=== PATIENT | male | born 1935 | race Caucasian/White ===

== ENCOUNTER → 2017-10-03 | Day surgery (SDC) | payer MEDICARE ==
[2017-10-03] VITALS (7 sets, daily range): BP systolic 114–139; BP diastolic 44–61
[~2017-10-03] VITALS: Ht 177.8 cm; Wt 81.6 kg
[~2017-10-03] MED LIST: APRESOLINE10 MG PO; ASPIRIN FOR CHI81 MG PO; HYDREA500 M1 PO; Meclizine25 MG PO; PRESERVISION A1 EAC1 PO; PRILOSEC20 M1 PO; TOPROL XL25 MG PO
--- NOTE | ~2017-10-03 | PROC NOTE ---
[place], [place] PROCEDURE NOTE NAME: [facility]DEZ [id number] UNIT #: [id number] ROOM: DOCTOR: NIXON PAULA MD,ERNESTO BIRTHDATE: [birth year] DOS: 10/03/2017 OUTPATIENT BRONCHOSCOPY NOTE PREOPERATIVE DIAGNOSIS: Right lower lung mass. POSTOPERATIVE DIAGNOSIS: Right lower lung mass. PROCEDURE DESCRIPTION: Informed consent obtained for the patient. The patient was brought to the OR and placed in a supine position. Conscious sedation administered by the Anesthesia Department. After achieving proper sedation, airway introduced into the mouth. The bronchoscope was advanced to airway into laryngeal area. Epiglottis and vocal cords were seen. Vocal cords are moving symmetrically with movements. The bronchoscope was advanced to the vocal cord and tracheal lumen, which are noted patent. Right upper, right middle, right lower, left upper, lingular lobe bronchi were all examined and noted clear of any secretions. The bronchial washing taken in the right lower lobe endobronchial tree as well as BAL specimen was also obtained for the patient successfully in all of the subsegments. The procedure was tolerated by the patient without any complication. Postoperative findings were discussed with the patient's family members. Outpatient followup already been scheduled for the office. ERNESTO ALICEA MD CM:PROCNOTE:PROCEDURE NOTE [id number] ERNESTO PAULA MD
[2017-10-03 09:09] LABS: HEMATOCRIT 27.9 % (42.0-52.0); HEMOGLOBIN 7.9 g/dl (14.0-18.0); MEAN CELL VOLUME 101.5 fl (80.0-94.0); MEAN CORPUSCULAR HGB 28.7 pg (27.0-31.0); MEAN CORPUSCULAR HGB CONC 28.3 g/dl (33.0-37.0); MEAN PLATELET VOLUME 9.9 fl (9.6-12.3); NUCLEATED RED BLOOD CELL 1.9 10*3/uL (0.0-0.0); NUCLEATED RED BLOOD CELL 4.1 % (0.0-0.0); PLATELET COUNT AUTOMATED 409 10*3/uL (130-400); RED BLOOD COUNT 2.75 10*6/uL (4.50-5.90); RED CELL DISTRI WIDTH 17.3 % (0-14.5)
[2017-10-03 09:16] LABS: WHITE BLOOD COUNT 45.9 10*3/uL (4.8-10.8)
[2017-10-03 09:26] LABS: BASOPHILS 4 % (0-1); TOTAL CELLS COUNTED 100 #CELLS
[2017-10-03 09:27] LABS: PLATELET SUFFICIENCY NORMAL (NORMAL); POLYCHROMASIA MODERATE
[2017-10-03 10:36] LABS: BF LYMPHOCYTES 4 %; BF NEUTROPHILS 91 %
[2017-10-03 10:38] LABS: BF MACROPHAGES 5 %
[2017-10-04 15:07] LABS: ACID FAST SPEC PROCESSING Concentration (.)
[2017-10-04 15:07] LABS: ACID FAST SPEC PROCESSING Concentration (.)
== END | disposition home or self-care (01) ==
LOC: SDC 04:25 → EDBD 04:25 → SDC 08:30
PROVIDERS: Internal Medicine Critical Care Medicine
DX: R91.8 Other nonspecific abnormal finding of lung field (principal); J45.909 Unspecified asthma, uncomplicated; K21.9 Gastro-esophageal reflux disease without esophagitis; H40.9 Unspecified glaucoma; Z90.2 Acquired absence of lung [part of]; Z88.6 Allergy status to analgesic agent; Z87.891 Personal history of nicotine dependence; Z90.49 Acquired absence of other specified parts of digestive tract; Z98.42 Cataract extraction status, left eye; Z98.41 Cataract extraction status, right eye; Z85.820 Personal history of malignant melanoma of skin; Z80.1 Family history of malignant neoplasm of trachea, bronchus and lung